=== PATIENT | male | born 1955 | race Caucasian/White ===

== ENCOUNTER 2022-12-07 10:00 | Outpatient (REF) | payer SELFPAY ==
[2022-12-07 11:22] LABS: Anion Gap 11 (12-20); Blood Urea Nitrogen 17 mg/dL (9-16); Calcium 9.4 mg/dL (8.4-10.2); Carbon Dioxide 27 mmol/L (22-29); Chloride 107 mmol/L (96-108); Estimated Glomerular Filt Rate > 60; Glucose Random 89 mg/dL (60-115); Potassium 4.2 mmol/L (3.3-5.1); Sodium 141 mmol/L (135-145)
== END 2022-12-07 10:01 | disposition home or self-care (01) ==
LOC: HO.10HDL 10:00
PROVIDERS: Visit Provider Internal Medicine
DX: I10 Essential (primary) hypertension (principal)
CPT/HCPCS: 36415; 80048

== ENCOUNTER 2024-10-20 14:40 | Outpatient (AMB) | payer SELFPAY ==
--- NOTE | 2024-10-20 14:48 | A.OFFPC_ITS ---
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 Accompanied by: Self / Same As Patient Allergies No Known Allergies Allergy (Verified 10/20/24 14:56) Tobacco use date assessed: 10/20/24 Fall risk assessment: No Falls in past year Last assessed Fall Risk: 10/20/24 Dental Screening Dental Screen Date: 10/20/24 Did you have a dental visit in the last 12 months?: Yes Did you have a dental problem in the last 6 months where you did not have access to dental care?: No [facility] Medical History (Updated 10/20/24 @ 15:27 by Asher Alvarado MD) Essential hypertension Hyperlipidemia Surgical History History of colonoscopy (~11/29/18) Family History (Updated 10/20/24 @ 14:58 by Starr Schuster MA) Mother No problems noted. Father No problems noted. Social History Housing: House Patient Tobacco Use Status: Former Tobacco user e-Cigarette/Vaping Use: Former Use service: No Current occupational status: retired Cognitive needs: No Hearing needs: No Vision needs: Yes (rx glasses) Questionnaire PHQ-9 Over the last 2 weeks, how often have you been bothered by any of the following problems? 1. Little interest or pleasure in doing things: not at all 2. Feeling down, depressed, or hopeless: not at all 3. Trouble falling or staying asleep, or sleeping too much: not at all 4. Feeling tired or having little energy: not at all 5. Poor appetite or overeating: not at all 6. Feeling bad about yourself - or that you are a failure or have let yourself or your family down: not at all 7. Trouble concentrating on things, such as reading the newspaper or watching television: not at all 8. Moving or speaking so slowly that other people could have noticed. Or the opposite - being so fidgety or restless that you have been moving around a lot more than usual: not at all 9. Thoughts that you would be better off or of hurting yourself in some way: not at all Total score: 0 Source: Developed by Drs. Robel Shah, Leonor Yo, Nahum Barker and colleagues, with an educational cheng from [employer] Thrive Questionnaire Date Thrive assessed: 10/20/24 I am a: Patient Within the past 12 months, did the food you bought not last and you didn't have the money to get more?: Never true Within the past 12 months, did you worry whether your food would run out before you got money to buy more?: Never true Do you have trouble paying for medicines?: No Do you have trouble getting transportation to medical appointments?: No Do you have trouble paying your heating and electricity bill?: No Do you have trouble taking care of your child, family member or friend?: No Do you have trouble with day-to-day activities such as bathing, preparing meals, shopping, managing finances, etc.?: No Are you currently unemployed and looking for a job?: No Are you interested in more education?: No THRIVE Score: 0 AUDIT C Alcohol Use Questionnaire (AUDIT-C) 1. How often do you have a drink containing alcohol?: Monthly or less 2. How many drinks containing alcohol do you have on a typical day when you are drinking?: 1 or 2 3. How often do you have six or more drinks on one occasion?: Less than monthly Total Score: 2 JOSIAH-7 AMB Questionnaire JOSIAH-7 Date JOSIAH - 7 assessed: 10/20/24 Feeling nervous, anxious, or on edge: 0 = Not at all Not being able to stop or control worryin = Not at all Worrying too much about different things: 0 = Not at all Trouble relaxin = Not at all Being so restless that it is hard to sit still: 0 = Not at all Becoming easily annoyed or irritable: 0 = Not at all Feeling afraid as if something awful might happen: 0 = Not at all Total JOSIAH-7 score (0-4 normal; 5-9 mild; 10-14 moderate; 15-21 severe): 0 Source: Developed by Drs. Robel Shah, Leonor Yo, Nhaum Barker and colleagues, with an educational cheng from [employer] Physical exam (Primary Care) Vital Signs: Last Vital Signs Temp 97.7 F 10/20/24 14:49 Pulse 66 10/20/24 14:49 BP 130/80 10/20/24 14:49 Pulse Ox 98 10/20/24 14:49 Oxygen Delivery Method Room Air 10/20/24 14:49 BMI result Body Mass Index 28.2 Tobacco/Smoking Status: Tobacco use Status Tobacco use date assessed 10/20/24 10/20/24 14:51 Patient Tobacco Use Status Former Tobacco user 10/20/24 14:58 e-Cigarette/Vaping Use Former Use 10/20/24 14:58 PHQ-9: PHQ-9 Score PHQ-9: Total score 0 10/20/24 14:58 Thrive Assessment: Date of Thrive Assessment Date Thrive assessed 10/20/24 10/20/24 14:51 Coding Level of Care Code New Pt Level 4 (00688) Complex EM visit Add On G2211 Diagnoses Essential hypertension I10 Hyperlipidemia E78.5 Screening for colon cancer Z12.11 Assessment & Plan Assessment & Plan (1) Essential hypertension: Code(s): I10 - Essential (primary) hypertension Category: Medical Plan: BP is in range. Continue medications at same dosage. (2) Hyperlipidemia: Code(s): E78.5 - Hyperlipidemia, unspecified Category: Medical Plan: fasting bw has been ordered. Will call with results (3) Screening for colon cancer: Code(s): Z12.11 - Encounter for screening for malignant neoplasm of colon Plan: Patient has an upcoming appt with Dr Morillo Plan History of Present Illness The patient is a 69-year-old male presenting for a wellness visit and check-up. He has a history of left shoulder impingement, which was recently evaluated by Dr. Hurd. The physician determined that surgical intervention was unnecessary, recommending home therapy or a therapist consultation. The patient noted some improvement but indicated continued use of his left side, given his left- handedness. Additionally, the patient has an upcoming colonoscopy for which preliminary office meetings are scheduled in October under the care of Dr. Morillo. He expressed no new concerns but is preparing for upcoming assessments. This interaction focused on these ongoing plans and evaluations. 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 - Participates in theater work locally. - Lives in [place]; typically uses [facility] for laboratory testing. - Denies smoking history for the past 50 years; reports occasional alcohol consumption, attributed to his involvement in the music profession. - Exercises have been limited recently due to shoulder impingement. Review of Systems - Musculoskeletal: Reports left shoulder impingement. - Gastrointestinal: No current issues, with an upcoming colonoscopy planned. - Respiratory: Denies any issues. - Neurological: Denies any issues. - General: Reports no new health concerns. Physical Exam General: Cooperative and healthy appearing Nutritional Appearance: Well nourished Orientation/consciousness: Patient oriented x3 Limitations: No limitations Head: Normal to inspection General: Appearance normal, both eyes and all related structures Neck: Normal visual inspection Chest: Normal palpation of entire chest wall Respiratory: N ormal respiratory effort Neurology: Patient oriented x3, no issues while playing the trZipsceneet. Results - Tests: Upcoming preliminary meeting for colonoscopy noted for October. Plan For the left shoulder impingement, no surgery is planned; the patient is advised to pursue home therapy and possibly a therapist visit to aid recovery. The colonoscopy, under Dr. Morillo's guidance, is scheduled with preliminary meetings in October. Lab work should be completed ideally within the [facility] for seamless integration, though [facility] in [place] is also an option. Continued observation of overall health and a follow-up in six months are recommended. No prescriptions are needed currently. Patient was informed and verbally consented to the use of an ambient scribe for clinic note documentation during this visit. Discussion Notes I discussed with the patient that surgical intervention for his left shoulder impingement is not necessary at this time, according to Dr. Hurd's assessment. It was agreed that home therapy should continue, and visiting a therapist is an option if further assistance is needed. We talked about the importance of managing symptoms for gradual improvement. I also reviewed the plans for his upcoming colonoscopy with Dr. Morillo, including the preliminary meetings scheduled in October. The patient is aware of where to complete his lab work for convenience and best access to records. We concluded the visit by arranging a follow-up in six months to assess his condition and overall wellness. Patient Instructions - Continue home therapy for left shoulder and consider a therapist if needed. - Prepare for the colonoscopy with Dr. Morillo, attending preliminary meetings in October. - Complete any lab work preferably within the [facility] for record integr [facility] [place], alternatively, [facility] in [place] is fine. - Follow up in six months for wellness check-up. - Contact pharmacy directly when running low on prescriptions; they will coordinate with us. Orders: Orders Complete Blood Count no Diff Today E78.5 - Hyperlipidemia, unspecified, I10 - Essential (primary) hypertension Lipid Panel Today E78.5 - Hyperlipidemia, unspecified, I10 - Essential (primary) hypertension Thyroid Stimulating Hormone Today E78.5 - Hyperlipidemia, unspecified, I10 - Essential (primary) hypertension Basic Metabolic Panel Today E78.5 - Hyperlipidemia, unspecified, I10 - Essent ial (primary) hypertension Liver Panel Today E78.5 - Hyperlipidemia, unspecified, I10 - Essential (primary) hypertension UA and rflx microscopic Today E78.5 - Hyperlipidemia, unspecified, I10 - Essential (primary) hypertension
[2024-10-20 14:49] VITALS: BP 130/80; PULSE 66; TEMP 36.5; O2SAT 98; BMI 28.2
== END 2024-10-20 15:26 | disposition home or self-care (01) ==
LOC: HO.HMCHD 14:41
PROVIDERS: PCP Internal Medicine; Visit Provider Internal Medicine
DX: I10 Essential (primary) hypertension (principal); E78.5 Hyperlipidemia, unspecified; Z12.11 Encounter for screening for malignant neoplasm of colon

== ENCOUNTER → 2024-10-20 14:40 | Outpatient (BNVA) | payer SELFPAY | PROVIDERS: PCP Internal Medicine; Visit Provider Internal Medicine | DX: I10 Essential (primary) hypertension (principal); E78.5 Hyperlipidemia, unspecified | CPT/HCPCS: 96127; 99202 ==

== ENCOUNTER 2024-10-30 08:14 | Outpatient (REF) | payer OTHER, SELFPAY ==
[2024-10-30 11:31] LABS: Hematocrit 40.4 % (42.0-52.0); Hemoglobin 13.7 g/dl (14.0-18.0); Mean Corpuscular HGB Conc 33.9 g/dl (31.0-36.0); Mean Corpuscular Hemoglobin 32.1 pg (27.0-33.0); Mean Corpuscular Volume 94.6 fL (80.0-98.0); Mean Platelet Volume 9.9 fL (9.4-12.4); Platelet Count 227 X10*3/uL (160-400); Red Blood Count 4.27 X10*6/uL (4.60-5.80); Red Cell Distribution Width 12.6 % (11.0-16.0); White Blood Count 5.4 X10*3/uL (4.8-10.8)
[2024-10-30 11:40] LABS: Appearance Urine Clear; Color Urine Yellow; Glucose Urine UA Negative (Negative); Leukocyte Esterase Urine Negative (Negative); Nitrite Urine Negative (Negative); PH 6.5 (5.0-9.0); Urine Blood Negative (Negative); Urine Ketones Negative (Negative); Urine Protein Negative (Neg-Trace)
[2024-10-30 12:16] LABS: Alanine Aminotransferase 21 U/L (0-40); Albumin Level 4.1 g/dL (3.5-5.0); Alkaline Phosphatase 51 U/L (39-117); Anion Gap 11 (12-20); Aspartate Amino Transferase 25 U/L (5-37); Bilirubin Direct 0.2 mg/dL (0.0-0.5); Bilirubin Total 0.6 mg/dL (0.0-1.0); Blood Urea Nitrogen 15 mg/dL (9-16); Calcium 9.1 mg/dL (8.4-10.2); Carbon Dioxide 25 mmol/L (22-29); Chloride 109 mmol/L (96-108); Cholesterol 230 mg/dL (<200); Estimated Glomerular Filt Rate > 60; Glucose Random 87 mg/dL (60-115); HDL Cholesterol 67 mg/dL (>40); LDL Cholesterol Calculated 147 mg/dL (<100); Potassium 4.2 mmol/L (3.3-5.1); Sodium 141 mmol/L (135-145); Thyroid Stimulating Hormone 1.71 uIU/mL (0.32-4.0); Total Protein 6.5 g/dL (6.5-8.0); Triglycerides 80 mg/dL (<150)
== END 2024-10-30 08:15 | disposition home or self-care (01) ==
LOC: HO.WFDLDS 08:14
PROVIDERS: Visit Provider Internal Medicine
DX: E78.5 Hyperlipidemia, unspecified (principal); I10 Essential (primary) hypertension
CPT/HCPCS: 36415; 80048; 80061; 80076; 81003; 84443; 85027

== ENCOUNTER 2025-02-10 07:58 | Outpatient (REF) | payer OTHER, SELFPAY ==
--- OUTSIDE RECORDS SUMMARY | 2025-02-10 08:00 | XMS_ITS | Patient Health Record ---
Author Organization [facility] Address [address] [place] [address] Care Team Providers Care Stave Planer Tender Name Role Phone SUSAN RAY Primary Care Provider Robel Ch Unavailable [phone] Allergies No Known Allergies Reason For Referral Referring Provider First Name SUSAN Referring Provider Last Name CORY Referred Organization [facility] Referred Provider Robel Morillo Referred Address [address],[place], [place],[address], Referred Provider Specialty Gastroentero logy General Notes Janet Drew 2024 02:38:11 PM >pt is in the process of notifying [facility] that his new provider is Dr. Ray, He will request a referral when he goes for his appt with him on 10-20-2024, Janet Drew 10/13/2024 02:54:53 PM >Per patient no referral required for [facility] per his insurance company. Referral Priority [...] Problem Status W/U Status Risk Notes Problem [id number] Encounter for screening for malignant neoplasm of colon (Z12.11) Active confirmed Problem [id number] Preprocedural examination (Z01.818) Active confirmed Problem History of adenomatous polyp of colon (Z86.0101) Active confirmed Vital Signs Blood pressure diastolic 77 mm Hg 11/18/2024 Height 66.5 in 11/18/2024 Blood pressure systolic 111 mm Hg 11/18/2024 Weight 174 lbs 11/18/2024 BMI 27.66 kg/m2 11/18/2024 Procedures Procedure Date Ordered Date Performed Result Body Sit e COLONOSCOPY 11/18/2024 N/A Encounters Encounter Location Date Provider Diagnosis [facility] [address] [place] [address] 11/18/2024 Robel Ilia Encounter for screen ing for malignant neoplasm [...] COLONOSCOPY 10/24/2018 Next Appt Details Provider Name:Robel Morillo , 03/09/2025 07:30:00 AM, [address] [place] [address] , [place], [place], [phone], Insurance Providers Payer Name Payer Address Payer Phone Subscriber Number Group Number Insured Name Patient Relationship to Insured Coverage Start Date Coverage End Date [facility] [address] [place] [phone] [id number] MITUL CINDY Self - patient is the insured Medical (General) History Medical History History ICD Code Seasonal allergies Denies DE,DM,CVA,Lung disease,renal dise ase Neg. screening colonoscopy in 06/2008 HTN Colonoscopy in October 2018 with removal of a single small tubular adenoma and a hyperplastic polyp Surgical History Surgery Date(Month/Year) dental implant Tonsillectomy Knee surgery- right ACL replacement Bicep tendon surgery left
[2025-02-10 11:56] LABS: Cholesterol 225 mg/dL (<200); HDL Cholesterol 71 mg/dL (>40); Triglycerides 66 mg/dL (<150)
== END 2025-02-10 07:59 | disposition home or self-care (01) ==
LOC: HO.WFDLDS 07:58
PROVIDERS: Visit Provider Internal Medicine
DX: E78.5 Hyperlipidemia, unspecified (principal)
CPT/HCPCS: 36415; 80061

== ENCOUNTER 2025-03-09 06:20 | Day surgery (SDC) | payer OTHER, SELFPAY ==
--- OUTSIDE RECORDS SUMMARY | 2025-01-26 14:17 | XMS_ITS | Patient Health Record ---
Author Organization [facility] Address [address] [place] [address] Care Team Providers Care Biochemistry Technologist Name Role Phone SUSAN RAY Primary Care Provider Robel Ch Unavailable [phone] Allergies No Known Allergies Reason For Referral Referring Provider First Name SUSAN Referring Provider Last Name CORY Referred Organization [facility] Referred Provider Robel Morillo Referred Address [address],[place], [place],[address], Referred Provider Specialty Gastroentero logy General Notes Janet Drew 2024 02:38:11 PM >pt is in the process of notifying [facility] that his new provider is Dr. Ray, He will request a referral when he goes for his appt with him on 10-20-2024, Janet Drew 10/13/2024 02:54:53 PM >Per patient no referral required for [facility] per his insurance company. Referral Priority Routine Medications Medication SIG (Take, Route, Frequency, Duration) Notes Start Date End Date Status Alavert 10 MG 1 tablet on the tong ue and allow to dissolve Orally Once a day/when needed Active amLODIPine Besylate 2.5 MG 1 tablet Oral ly Once a day for 30 day(s) 10/24/2018 Active Losartan Potassium 50 MG 1 tablet Orally Once a day for 30 day(s) 10/24/2018 Active Immunizations Vaccine Route Administration Date Status Comme nts Influenza Unknown 10/24/2018 Refused Social History Tobacco Use: Social History Observation Description Date Details (start date - stop date) Former Smoker NA - NA Tobacco Use/Smoking Question Answer Notes Patient is a former smoker When did you stop smoking? 1978 Alcohol Screen Question Answer Notes Did you have a drink contain ing alcohol in the past year? Yes How often did you have a dri nk containing alcohol in the past year? 2 to 3 times a week (3 points) How many drinks did you have on a typical day when you were drinking in the past year? 1 or 2 drinks (0 point) How often did you have 6 or more drinks on one occasion in the past year? Never (0 point) Points 3 Interpretation Negative Section Notes: Nonsmoker; no sig alcohol Nonsmoker; no sig alcohol Problems Problem Type SNOMED Code ICD Code Onset Dates Problem Status W/U Status Risk Notes Problem [id number] Encounter for screening for malignant neoplasm of colon (Z12.11) Active confirmed Problem 335335631787248 Preprocedural examination (Z01.818) Active confirmed Problem History of adenomatous polyp of colon (200760509) History of adenomatous polyp of colon (Z86.0101) Active confirmed Vital Signs Blood pressure diastolic 77 mm Hg 11/18/2024 Height 66.5 in 11/18/2024 Blood pressure systolic 111 mm Hg 11/18/2024 Weight 174 lbs 11/18/2024 BMI 27.66 kg/m2 11/18/2024 Procedures Procedure Date Ordered Date Performed Result Body Sit e COLONOSCOPY 11/18/2024 N/A Encounters Encounter Location Date Provider Diagnosis [facility] [address] [place] [address] 11/18/2024 Robel Morillo Encounter for screen ing for malignant neoplasm of colon Z12.11 ; Preprocedural examination Z01.818 and History of adenomatous polyp of colon Z86.0101 Assessments Encounter Date Diagnosis (ICD Code) Assessment Notes Treatment Notes Treatment Clinical Notes Section Notes 11/18/2024 Encounter for screening for malignant neoplasm of colon (ICD-10 - Z12.11) Overall, Cindy appears well. We did review that given his history of a tubular adenoma removed over 5 years ago, his age, and his excellent clinical appearance, I would recommend a follow-up colonoscopy for further screening purposes. We did review the rationale for this in regard to colon cancer prevention. Full consent is obtained for this, including risks of bleeding and perforation. The procedure will be done with monitored anesthesia care. Cindy was comfortable with this plan. Thank you again for allowing me to participate in Cindy's care. I shall continue to keep you advised of his progress.. 11/18/2024 Preprocedural examination (ICD-10 - Z01.818) Overall, Cindy appears well. We did review that given his history of a tubular adenoma removed over 5 years ago, his age, and his excellent clinical appearance, I would recommend a follow-up colonoscopy for further screening purposes. We did review the rationale for this in regard to colon cancer prevention. Full consent is obtained for this, including risks of bleeding and perforation. The procedure will be done with monitored anesthesia care. Cindy was comfortable with this plan. Thank you again for allowing me to participate in Cindy's care. I shall continue to keep you advised of his progress.. 11/18/2024 History of adenomatous polyp of colon (ICD-10 - Z86.0101) Overall, Cindy appears well. We did review that given his history of a tubular adenoma removed over 5 years ago, his age, and his excellent clinical appearance, I would recommend a follow-up colonoscopy for further screening purposes. We did review the rationale for this in regard to colon cancer prevention. Full consent is obtained for this, including risks of bleeding and perforation. The procedure will be done with monitored anesthesia care. Cindy was comfortable with this plan. Thank you again for allowing me to participate in Cindy's care. I shall continue to keep you advised of his progress.. Plan Of Treatment Pending Test Test Name Order Date COLONOSCOPY 11/18/2024 Future Test Test Name Order Date COLONOSCOPY 10/24/2018 Next Appt Details Provider Name:Robel Boles Ilia , 03/09/2025 07:30:00 AM, [address] [place] [address] , [place], [place], [phone], Insurance Providers Payer Name Payer Address Payer Phone Subscriber Number Group Number Insured Name Patient Relationship to Insured Coverage Start Date Coverage End Date [facility] [address] [place] [phone] [id number] CINDY BAUMAN Self - patient is the insured Medical (General) History Medical History History ICD Code Seasonal allergies Denies SC,DM,CVA,Lung disease,renal dise ase Neg. screening colonoscopy in 06/2008 HTN Colonoscopy in October 2018 with removal of a single small tubular adenoma and a hyperplastic polyp Surgical History Surgery Date(Month/Year) dental implant Tonsillectomy Knee surgery- right ACL replacement Bicep tendon surgery left
[2025-03-05 13:22] VITALS: BMI 27.7
--- NOTE | 2025-03-06 11:37 | HO.ANESPROP2 ---
Documented by User: Lilliam Ray NP 03/06/25 11:37 HPI - Anesthesia Eval Consult details Narrative: 69 yr old male for colonoscopy [facility] Active Problems Active Problems: All Active Problems (Updated 03/05/25 @ 13:23 by Yoly Cantrell RN) Essential hypertension (Acute) Hyperlipidemia (Acute) Past Medical History Medical History (Updated 03/05/25 @ 13:23 by Yoly Cantrell RN) History of insertion of dental endosseous implant Essential hypertension Hyperlipidemia Family History Family History (Updated 10/20/24 @ 14:58 by Starr Schuster MA) Mother No problems noted. Father No problems noted. Surgical History Surgical History (Updated 03/05/25 @ 13:23 by Yoly Cantrell RN) Hx of tonsillectomy History of repair of anterior cruciate ligament of right knee History of surgery on arm History of colonoscopy (~11/29/18) Social History Social History (Updated 03/05/25 @ 13:24 by Yoly Cantrell RN) Household Members: Spouse Housing: House Patient Tobacco Use Status: Former Tobacco user Tobacco use type: Cigarette e-Cigarette/Vaping Use: Former Use Advance Directives: No Advance Directives Information Provided: Yes service: No Current occupational status: retired Cognitive needs: No Hearing needs: No Vision needs: Yes (rx glasses) Meds Allergies Allergy/AdvReac Type Severity Reaction Status Date / Time No Known Allergies Allergy Verified 03/09/25 06:38 Exam Height,Weight and Vital Signs: Height 5 ft 6.5 in Weight 78.925 kg Documented by User: Inga Chapman MD 03/09/25 06:55 [facility] Past Medical History Medical History (Updated 03/05/25 @ 13:23 by Yoly Cantrell RN) History of insertion of dental endosseous implant Essential hypertension Hyperlipidemia Family History Family History (Updated 10/20/24 @ 14:58 by Starr Schuster MA) Mother No problems noted. Father No problems noted. Family history of problems with anesthesia: No Surgical History Surgical History (Updated 03/05/25 @ 13:23 by Yoly Cantrell RN) Hx of tonsillectomy History of repair of anterior cruciate ligament of right knee History of surgery on arm History of colonoscopy (~11/29/18) History of Problems with Anesthesia: No Social History Social History (Updated 03/05/25 @ 13:24 by Yoly Cantrell RN) Household Members: Spouse Housing: House Patient Tobacco Use Status: Former Tobacco user Tobacco use type: Cigarette e-Cigarette/Vaping Use: Former Use Advance Directives: No Advance Directives Information Provided: Yes service: No Current occupational status: retired Cognitive needs: No Hearing needs: No Vision needs: Yes (rx glasses) Meds Allergies Allergy/AdvReac Type Severity Reaction Status Date / Time No Known Allergies Allergy Verified 03/09/25 06:38 Exam Airway Mallampati Class: II (implant top left ) TM Dist: >3cm Neck ROM: Full Heart: rrr Lungs: cta Assessment and Plan Assessment Anesthesia Assessment: Anesthesia Plan Discussed and Chart Reviewed Final Anesthetic Review Family History of Problems with Anesthesia: No History of Problems with Anesthesia: No NPO: Yes ASA Class: II Final Preanesthetic Review: No Changes in Pt Med Stat, Meds/Allgs Chart Reviewed and Consent Obtained/Reviewed Patient Risk: Low Procedure Risk: Low Anesthetic Plan Anesthetic Plan: MAC: Disposition: Standard PACU
[2025-03-09 06:53] VITALS: BP 188/97; PULSE 58; RESP 12; TEMP 36.6; O2SAT 97; BMI 27.5
[2025-03-09] MEDS: Lactated Ringers 1,000 ML 100 ML IVCONT (07:02)
[2025-03-09 08:22] VITALS: BP 114/70; PULSE 52; RESP 12; TEMP 36.2; O2SAT 96
--- NOTE | 2025-03-09 08:25 | PM.OP ---
Brief Operative Note Date of Service: 03/09/25 Pre-op diagnosis: Screening Post-op diagnosis: other (Diverticulosis) Procedure: Colonoscopy to the cecum and TI Surgeon: Robel Morillo MD Anesthesia: MAC Was an Multi Share Program Coordinator used for this Procedure?: No Estimated blood loss (mL): 0 Pathology: none sent Condition: stable Disposition: PACU
[2025-03-09 08:31] VITALS: BP 117/74; PULSE 53; RESP 16; TEMP 36.4; O2SAT 97
--- NOTE | 2025-03-10 15:57 | OP_ITS ---
DATE OF SERVICE: 03/09/2025 SURGEON: Robel Morillo MD INDICATIONS: The patient presents for followup of colorectal cancer screening and personal history of tubular adenoma of the colon. Full consent has been obtained from him for this, including risks of bleeding and perforation. PREOPERATIVE DIAGNOSIS: POSTOPERATIVE DIAGNOSIS: PROCEDURE PERFORMED: Colonoscopy to the cecum and terminal ileum. ESTIMATED BLOOD LOSS: COMPLICATIONS: ANESTHESIA: Medication used, monitored anesthesia care. ASSISTANTS: SPECIMENS: PREOPERATIVE DIAGNOSES: Colorectal cancer screening and personal history of tubular adenoma of the colon. POSTOPERATIVE DIAGNOSES: Colorectal cancer screening and personal history of tubular adenoma of the colon, sigmoid diverticulosis, and small internal hemorrhoids. DESCRIPTION OF PROCEDURE: The patient was placed in the left lateral decubitus position. The digital rectal exam revealed no abnormalities. The Olympus video pediatric colonoscope was entered into the rectum and advanced easily to the cecum. Once in the cecum, I did identify normal-appearing cecal pouch with appendiceal orifice and ileocecal valve. The terminal ileum was cannulated and appeared normal. The scope was withdrawn back in the colon. The entire cecum and ileocecal valve appeared normal. The scope was slowly withdrawn assessing all mucosal surfaces carefully. Preparation was excellent. I did not visualize any sign of polyps, colitis, nor angiodysplasia. There was a mild amount of sigmoid diverticulosis. In the rectum, scope was retroflexed visualizing small internal hemorrhoids, but no other pathology. The rectal mucosa appeared normal. Scope was straightened and withdrawn from the patient. He tolerated the procedure well and was returned to the recovery area in stable condition. IMPRESSION: 1. Sigmoid diverticulosis. 2. Small internal hemorrhoids. PLAN: I would recommend a repeat colonoscopy in 5 years for further screening given his previous history of a tubular adenoma. He will otherwise see me on a p.r.n. basis. MD EUGENIO Caal/LAURITA / [id number] NALDO
== END 2025-03-09 09:09 | disposition home or self-care (01) ==
PROVIDERS: PCP Internal Medicine; Visit Provider Internal Medicine
PROC: 0DJD8ZZ Inspection of Lower Intestinal Tract, Via Natural or Artificial Opening Endoscopic (ICD-10-PCS; CPT 45378; principal; 2025-03-09 07:30)
DX: Z12.11 Encounter for screening for malignant neoplasm of colon (principal); Z86.0101 Personal history of adenomatous and serrated colon polyps; K57.30 Diverticulosis of large intestine without perforation or abscess without bleeding; K64.8 Other hemorrhoids; I10 Essential (primary) hypertension; E78.5 Hyperlipidemia, unspecified; J30.2 Other seasonal allergic rhinitis; Z79.899 Other long term (current) drug therapy; Z98.890 Other specified postprocedural states; Z87.891 Personal history of nicotine dependence
CPT/HCPCS: 45378; J2003; J2704